=== PATIENT | male | born 1995 | race Caucasian/White ===

== ENCOUNTER → 2024-02-11 | Outpatient (CLI) | payer BC ==
--- NOTE | 2024-02-17 00:41 | MR ---
EXAMINATION TYPE: MR ankle RT wo con DATE OF EXAM: 02/11/2024 11:47 AM COMPARISON: Outside right ankle x-ray February 09, 2024 CLINICAL INDICATION: Male, 28 years old with history of M25.571 PAIN IN RIGHT ANKLE AND JOINTS OF RIG HT FO, Right ankle pain, medial aspect for 2 months.. IV Contrast: cc (None if empty) Standard multiplanar, multisequence MRI departmental protocol Multiplanar, multisequence images of the right ankle were acquired without contrast. FINDINGS: Bone marrow signal intensity is maintained. Small focus of increased T2 signal involving th e medial aspect of the distal tibia abutting the articular surface measuring approximately 11 mm hewitt sversely coronal image 34 x 11 mm AP diameter sagittal image 10. Adjacent talus appears intact. No carcamo spicious linear T1 signal to suggest occult fracture. No os trigonum. No significant Joint effusion. No posterior capsular thickening. The anterior tibiofibular and anterior talofibular ligaments are intact. Some fluid surrounds the lat ter. Some increased signal is seen particularly on coronal images at this level The posterior syndesm osis is intact. There is edematous thickening of the medial deltoid ligament. Plantar fascia is intact. Distal Achilles tendon is intact. The peroneal tendons are intact. The flexor tendons along posterior medial aspect of the ankle are in tact. Extensor tendons anteriorly are intact. Normal sinus tarsi fat is seen. Lisfranc joints are maintained. IMPRESSION: 1. Grade 1 or 2 injury of the medial deltoid ligament. 2. Grade 2 injury of the anterior talofibular ligament. 3. Roughly 1.1 centimeter focus of abnormal bone marrow edema in the medial aspect of the distal tibi a abutting the articular surface. [facility], , 02/17/2024 12:39 AM
== END | disposition home or self-care (01) ==
LOC: RADMRIMAIN 11:04
PROVIDERS: ATTEND Orthopaedic Surgery
DX: M25.571 Pain in right ankle and joints of right foot (principal); R60.9 Edema, unspecified

== ENCOUNTER 2024-09-29 17:18 | Emergency (ER) | payer BC ==
[2024-09-29 17:30] VITALS: RESP 16
--- NOTE | 2024-09-29 17:53 | ED ---
General Adult HPI - General Chief complaint: Recheck/Abnormal Lab/Rx Stated complaint: rabies exposure Time Seen by Provider: 09/29/24 17:31 Source: patient Mode of arrival: ambulatory Limitations: no limitations - History of Present Illness Initial comments: 28-year-old male here for rabies vaccination. Patient states that he and his family woke up with a bat flying around his bedroom earlier this morning. No known bites or scratches. They chased it out of the room and got it outside. Called the health department who recommended that they come for rabies vaccinations. - Related Data Allergies Allergy/AdvReac Type Severity Reaction Status Date / Time iodine Allergy Rash/Hives Verified 09/29/24 17:30 Review of Systems ROS Statement: Those systems with pertinent positive or pertinent negative responses have been documented in the HPI. ROS Other: All systems not noted in ROS Statement are negative. Past Medical History Past Medical History: No Reported History History of Any Multi-Drug Resistant Organisms: None Reported Past Surgical History: Orthopedic Surgery Past Psychological History: No Psychological Hx Reported Smoking Status: Never smoker Past Alcohol Use History: None Reported Past Drug Use History: None Reported General Exam Limitations: no limitations General appearance: alert, in no apparent distress Head exam: Present: atraumatic, normocephalic, normal inspection Eye exam: Present: normal appearance, EOMI Neck exam: Present: normal inspection. Absent: meningismus Respiratory exam: Absent: respiratory distress Cardiovascular Exam: Present: regular rate Neurological exam: Present: alert, oriented X3 Psychiatric exam: Present: normal affect, normal mood Skin exam: Present: normal color Course Vital Signs 09/29/24 09/29/24 17:28 17:54 Temperature 97.6 F 97.9 F Pulse Rate 87 87 Respiratory 16 16 Rate Blood Pressure 126/83 118/71 O2 Sat by Pulse 98 97 Oximetry Medical Decision Making - Medical Decision Making Was pt. sent in by a medical professional or institution (, PA, BOOM MAN, urgent care, hospital, or halfway...) When possible be specific @ -Health department Did you speak to anyone other than the patient for history (EMS, parent, family, police, friend...)? What history was obtained from this source @ -No Did you review nursing and triage notes (agree or disagree)? Why? @ -I reviewed and agree with nursing and triage notes Were old charts reviewed (outside hosp., previous admission, EMS record, old EKG, old radiological studies, urgent care reports/EKG's, halfway records)? Report findings @ -No old charts were reviewed Differential Diagnosis (chest pain, altered mental status, abdominal pain women, abdominal pain men, vaginal bleeding, weakness, fever, dyspnea, syncope, headache, dizziness, GI bleed, back pain, seizure, CVA, palpatations, mental health, musculoskeletal)? @ -Not applicable EKG interpreted by me (3pts min.). @ -As above X-rays interpreted by me (1pt min.). @ -None done CT interpreted by me (1pt min.). @ -None done U/S interpreted by me (1pt. min.). @ -None done What testing was considered but not performed or refused? (CT, X-rays, U/S, labs)? Why? @ -None What meds were considered but not given or refused? Why? @ -None Did you discuss the management of the patient with other professionals (professionals i.e. , PA, BOOM MAN, lab, RT, psych nurse, social work lecturer, divorce lawyer, teacher, identification officer, business case analyst)? Give summary @ -No Was smoking cessation discussed for >3mins.? @ -No Was critical care preformed (if so, how long)? @ -No Were there social determinants of health that impacted care today? How? (Homelessness, low income, unemployed, alcoholism, drug addiction, transportation, low edu. Level, literacy, decrease access to med. care, retirement, rehab)? @ -No Was there de-escalation of care discussed even if they declined (Discuss DNR or withdrawal of care, Hospice)? DNR status @ -No What co-morbidities impacted this encounter? (DM, HTN, Smoking, COPD, CAD, Cancer, CVA, ARF, Chemo, Hep., AIDS, mental health diagnosis, sleep apnea, morbid obesity)? @ -None Was patient admitted / discharged? Hospital course, mention meds given and route, prescriptions, significant lab abnormalities, going to OR and other pertinent info. @ -28-year-old male here for rabies vaccination after waking up with a bat in his bedroom. First dose of vaccine and immunoglobulin administered here. Provided with written order for the remainder of the doses. Follow-up with PCP and report back to ER with any new or worsening symptoms. My attending is Dr. Bolivar Undiagnosed new problem with uncertain prognosis? @ -No Drug Therapy requiring intensive monitoring for toxicity (Heparin, Nitro, Insulin, Cardizem)? @ -No Were any procedures done? @ -No Diagnosis/symptom? @ -Rabies exposure Acute, or Chronic, or Acute on Chronic? @ -Acute Uncomplicated (without systemic symptoms) or Complicated (systemic symptoms)? @ -Uncomplicated Side effects of treatment? @ -No Exacerbation, Progression, or Severe Exacerbation? @ -No Poses a threat to life or bodily function? How? (Chest pain, [place], [place], pneumonia, PE, COPD, DKA, ARF, appy, cholecystitis, CVA, Diverticulitis, Homicidal, Suicidal, threat to staff... and all critical care pts) @ -Unlikely Disposition Clinical Impression: Rabies exposure Disposition: HOME SELF-CARE Condition: Good Instructions (If sedation given, give patient instructions): Rabies Vaccine (By injection), Rabies Immune Globulin (By injection), Rabies (ED) Additional Instructions: He will need 3 more doses of this vaccination on 10/02, 10/06, and 10/13. You are provided with a written order for the remainder of these doses. Follow-up with PCP and report back to ER with any new or worsening symptoms. Is patient prescribed a controlled substance at d/c from ED?: No Referrals: Azucena Carlson DO [Primary Care Provider] - 1-2 days Time of Disposition: 17:53
[2024-09-29] MEDS: RABIES VACCINE (PCEC) 2.5 UNIT KIT IM ONE (19:06)
[2024-09-29] MEDS: RABIES IMM GLOB 300 UNIT/2 ML VIAL IM ONE (19:07)
[2024-09-29 19:09] VITALS: BP 118/59; PULSE 72; TEMP 98
== END 2024-09-29 19:08 | disposition home or self-care (01) ==
LOC: EC 17:18
DX: Z20.3 Contact with and (suspected) exposure to rabies (principal); Z23 Encounter for immunization; Z88.8 Allergy status to other drugs, medicaments and biological substances
CPT/HCPCS: 90377; 90471; 90675; 96372; 99283